=== PATIENT | female | born 1945 | race Caucasian/White ===

== ENCOUNTER → 2017-04-09 | Outpatient (CLI) | payer MEDICARE ==
--- NOTE | 2017-04-09 15:04 | PCVCIMAG ---
EXAM: BILATERAL CAROTID DUPLEX INDICATION: Carotid Occlusive Disease. FINDINGS: Doppler Measurements (centimeters per second): RIGHT: Peak CCA-51, Peak ECA-101, Diastolic ICA-44, Peak ICA-188, ICA/CCA Ratio-3.7. LEFT: Peak CCA-59, Peak ECA-112, Diastolic ICA-16, Peak ICA-72, ICA/CCA Ratio-1.2. RIGHT CAROTID: The carotid bulb has moderate plaque. The proximal internal carotid artery shows 60-70% stenosis. The common carotid artery shows no significant stenosis. The external carotid artery shows no significant stenosis. LEFT CAROTID: The carotid bulb has mild plaque. The proximal internal carotid artery shows <40% stenosis. The common carotid artery shows no significant stenosis. The external carotid artery shows no significant stenosis. Antegrade flow in both vertebral arteries. IMPRESSION: 60-70% stenosis of the right internal carotid artery with moderate plaque. <40% stenosis of the left internal carotid artery with mild plaque. LOC:[place] [id number]
--- NOTE | 2017-04-10 09:58 | PCVCIMAG ---
APPROVED REPORT Study performed: 04/09/2017 14:39:27 EXAM: Comprehensive 2D, Doppler, and color-flow Echocardiogram Patient Location: Echo lab Status: routine BSA: 1.65 HR: 87 bpmBP: 110/64 mmHg Rhythm: NSR Other Information Study Quality: Adequate Risk Factors: Cardiac Risk Factors: HTN Indications #23 Bovine Aortic valve replacement, moderate mitral regurgitation 2D Dimensions LVEF(%): 26.27 (>50%) IVSd: 11.04 (7-11mm)LVOT Diam: 23.19 (18-24mm) LVDd: 39.75 mm PWd: 10.17 (7-11mm)Ascending Ao: 43.53 (22-36mm) LVDs: 34.99 (25-40mm) Left Atrium: 32.38 (27-40mm) Aortic Root: 38.24 mm LV Single Plane 4CH: 59.16 % LV Single Plane 2CH: 53.99 %Bustos's LVEF: 56.58 % Biplane EF: 56.0 % Volumes Left Atrial Volume (Systole) Single Plane 4CH: 54.51 mLSingle Plane 2CH: 70.52 mL LA ESV Index: 39.00 mL/m2 Aortic Valve AoV Peak Faustino.: 1.94 m/s AO Peak Gr.: 15.11 mmHgLVOT Max P.72 mmHg AO Mean Gr.: 7.31 mmHgLVOT Mean P.30 mmHg AO V2 Mean: 1.29 m/sLVOT Max V: 0.82 m/s AO V2 VTI: 32.06 cmLVOT Mean V: 0.53 m/s MARQUIS (VTI): 2.12 [id number] V1 VTI: 16.08 cm MARQUIS Vmax: 1.79 cm2 SV (LVOT): 67.88 mL Mitral Valve MV Peak Gr.: 2.48 mmHg MV Mean Gr.: 1.12 mmHgE/A Ratio: 1.6 MV Decel. Time: 207.83 ms MV E Max Faustino.: 0.68 m/s MV A Faustino.: 0.42 m/s MV Max Faustino.: 0.79 m/s MV Mean Faustino.: 0.50 m/s MV VTI: 192.06 mm MVA VTI: 353.41 mm2 MV PHT: 80.05 ms MVA (PHT): 2.75 cm2 IVRT: 79.58 ms Pulmonary Valve PV Peak Faustino.: 0.93 m/sPV Peak Gr.: 3.45 mmHg Pulmonary Vein P Vein S: 0.27 m/sP Vein A: 0.32 m/s P Vein D: 0.45 m/sP Vein A Dur.: 117.6 msec P Vein S/D Ratio: 0.60 Tricuspid Valve TR Peak Faustino.: 2.18 m/s TR Peak Gr.: 19.02 mmHg Left Ventricle The left ventricle is normal size. There is normal LV segmental wall motion. There is normal left ventricular wall thickness. Left ventricular systolic function is normal. The left ventricular ejection fraction is within the normal range. LVEF is 55%. Grade II - pseudonormal filling dynamics. Right Ventricle The right ventricle is normal size. The right ventricular systolic function is normal. Atria The left atrium size is moderately dilated. The right atrium size is normal. Aortic Valve Normally functioning #23 Bovine aortic valve replacement. The prosthetic aortic valve appears normal. No aortic regurgitation is present. There is no aortic valvular stenosis. Mitral Valve The mitral valve is normal in structure. Moderate eccentric, posterior mitral regurgitation. No evidence of mitral valve stenosis. Tricuspid Valve The tricuspid valve is normal in structure. There is no tricuspid valve regurgitation noted. Pulmonic Valve The pulmonary valve is normal in structure. There is no pulmonic valvular regurgitation. Great Vessels The aortic root is normal in size. IVC is normal in size and collapses with >50% inspiration Pericardium There is no pericardial effusion. <Conclusion> The left ventricle is normal size. LVEF is 55%. Grade II - pseudonormal filling dynamics. The right ventricle is normal size. The left atrium size is moderately dilated. Normally functioning #23 Bovine aortic valve replacement. There is no aortic valvular stenosis. Moderate eccentric, posterior mitral regurgitation. There is no tricuspid valve regurgitation noted. There is no pericardial effusion.
== END | disposition home or self-care (01) ==
LOC: PCVCIMAG 14:11
PROVIDERS: ATTEND Internal Medicine Cardiovascular Disease
DX: I65.23 Occlusion and stenosis of bilateral carotid arteries (principal); I34.0 Nonrheumatic mitral (valve) insufficiency; I25.10 Atherosclerotic heart disease of native coronary artery without angina pectoris; I10 Essential (primary) hypertension; Z95.4 Presence of other heart-valve replacement
CPT/HCPCS: 93306; 93880

== ENCOUNTER → 2017-04-16 | Outpatient (CLI) | payer MEDICARE ==
[~2017-04-16] MED LIST: REGADENOSON 0.4 MG/5 ML DISP.SYRIN. IV ONE
--- NOTE | 2017-04-17 14:03 | PCVCIMAG ---
APPROVED REPORT Exam: Nuclear Stress Test Indication: Abnormal EKG, Atypical Chest pain Patient Location: Out-Patient Stress Nurse: Bita Skinner RN, LAURITA Painter Tech:Suzette Kraftdamon [facility] Ht: 5 ft 2 in Wt: 139 lbs BSA: 1.64 m2 HR: 69 bpm BP: 177/76 mmHg BMI: 25.4 Rhythm: NSR, RBBB Medical History Medical History: Hyperlipidemia, HTN, CVD, AGE Medications: ASA, Atorvastatin, Celebrex, Gabapentin, [place], Prevacid, Losartan, Metoprolol (held 24 hours) Allergies: Ibuprofen, PCN Previous Cardiac Procedures: 2009 AVR Pretest Chest Pain Characteristics: No chest pain Exercise History: Sedentary Physical Disabilities: Legs NM EXAM: Myocardial Perfusion REST/STRESS Imaging Protocol: Rest Tc-99m/Stress Tc-99m 1 day Resting Data Rest SPECT myocardial perfusion imaging was performed in supine position 45 minutes following the intravenous injection of 9.9 mCi of Tc-99m Sestamibi. Time of rest injection: 814 Date: 04/16/2017 Administration Route: IV Administration Site: Right Arm Pharmacologic Stress Pharmacologic stress test was performed by injecting Regadenoson 0.4 mg IV push followed by the intravenous injection of 33.1 mCi of Tc-99m Sestamibi. Time of stress injection: 929 Date: 04/16/2017 Administration Route: IV Administration Site: Right Arm Gated Stress SPECT was performed 45 minutes after stress injection. The images were gated to evaluate regional wall motion and calculate left ventricular ejection fraction. Study Quality Study: Good Study Data Post stress, the left ventricular ejection was 69%.. SSS: 2 SRS: 3 SDS: 1 TID = 1.12. Perfusion No evidence of stress induced ischemia or prior myocardial infarction. Wall Motion Normal left ventricular size and function with no regional wall motion abnormalities. Nuclear Conclusion No evidence of stress induced ischemia or prior myocardial infarction. Normal left ventricular size and function with no regional wall motion abnormalities. Post stress, the left ventricular ejection was 69%.. No change since prior study dated 2015. Interpreted by: Vidal Monique MD Electronically Approved: 04/16/2017 13:25:08 Stress Test Details Stress Test: Pharmacologic stress testing performed using 0.4 mg of regadenoson per 5 mL given IV over 10 seconds. Reason for pharmacologic stress test: physical limitation. HR Resting HR: 69 bpmMax Heart Rate (APMHR): 150 bpm Max HR Achieved: 99 bpmTarget HR (85% APMHR): 127 bpm % of APMHR: 66 Recovery HR: 86 bpm BP Resting BP: 171/76 mmHg Max BP: 162/76 mmHg ECG Resting ECG: Sinus Rhythm, RBBB Stress ECG: Sinus Tachycardia, RBBB Recovery ECG: Sinus Rhythm, RBBB Clinical Reason for Termination: Completed protocol Stress Symptoms: Emesis, Nausea Exercise duration: 0 min 55 sec Exercise capacity: 1.0 METs Symptoms resolved with caffeine. Stress ECG Conclusion ECG: Non-ischemic Clinical: Non-ischemic <Conclusion> ECG: Non-ischemic Clinical: Non-ischemic
== END | disposition home or self-care (01) ==
LOC: PCVCIMAG 07:19
PROVIDERS: ATTEND Internal Medicine Cardiovascular Disease
DX: I45.10 Unspecified right bundle-branch block (principal); I10 Essential (primary) hypertension; K52.9 Noninfective gastroenteritis and colitis, unspecified; E78.5 Hyperlipidemia, unspecified; I25.10 Atherosclerotic heart disease of native coronary artery without angina pectoris; I77.9 Disorder of arteries and arterioles, unspecified; I34.0 Nonrheumatic mitral (valve) insufficiency
CPT/HCPCS: 78452; 93017; A9500; J2785

== ENCOUNTER → 2018-01-27 | Outpatient (CLI) | payer MEDICARE | END | disposition home or self-care (01) | LOC: PCVCIMAG 13:17 | DX: I65.23 Occlusion and stenosis of bilateral carotid arteries (principal); I77.9 Disorder of arteries and arterioles, unspecified; I25.10 Atherosclerotic heart disease of native coronary artery without angina pectoris; E78.00 Pure hypercholesterolemia, unspecified; I10 Essential (primary) hypertension; I42.9 Cardiomyopathy, unspecified; R94.31 Abnormal electrocardiogram [ECG] [EKG]; Z95.2 Presence of prosthetic heart valve; Z87.891 Personal history of nicotine dependence; Z79.82 Long term (current) use of aspirin; Z79.899 Other long term (current) drug therapy; Z88.0 Allergy status to penicillin; Z88.8 Allergy status to other drugs, medicaments and biological substances | CPT/HCPCS: 80061; 93005; 93880; G0463 ==

== ENCOUNTER → 2018-10-21 | Outpatient (CLI) | payer MEDICARE ==
--- NOTE | 2018-10-21 14:35 | PCVCIMAG ---
EXAM: BILATERAL CAROTID DUPLEX INDICATION: Carotid Occlusive Disease. FINDINGS: Doppler Measurements (centimeters per second): RIGHT: Peak CCA-59, Peak ECA-155, Diastolic ICA-17, Peak ICA-157, ICA/CCA Ratio-2.7. LEFT: Peak CCA-73, Peak ECA-95, Diastolic ICA-14, Peak ICA-122, ICA/CCA Ratio-1.7. RIGHT CAROTID: The carotid bulb has moderate plaque. The proximal internal carotid artery shows 60-70% stenosis. The common carotid artery shows no significant stenosis. The external carotid artery shows 50% stenosis. LEFT CAROTID: The carotid bulb has moderate plaque. The proximal internal carotid artery shows 40% stenosis. The common carotid artery shows no significant stenosis. The external carotid artery shows no significant stenosis. Antegrade flow in both vertebral arteries. IMPRESSION: 60-70% stenosis of the right internal carotid artery with moderate plaque. <40% stenosis of the left internal carotid artery with moderate plaque. No change since January 2018 study. LOC:[id number]
--- NOTE | 2018-10-21 16:05 | PCVCIMAG ---
APPROVED REPORT Study performed: 10/21/2018 14:57:11 EXAM: Comprehensive 2D, Doppler, and color-flow Echocardiogram Patient Location: Echo lab Status: routine BSA: 1.54 HR: 64 bpmBP: 140/82 mmHg Rhythm: NSR Other Information Study Quality: Adequate Risk Factors: Cardiac Risk Factors: HTN Indications CAD #23 aortic valve replacement, mitral regurgitation 2D Dimensions IVSd: 10.59 (7-11mm)LVOT Diam: 23.03 (18-24mm) LVDd: 50.46 mm PWd: 9.87 (7-11mm)Ascending Ao: 43.58 (22-36mm) LVDs: 32.26 (25-40mm) Left Atrium: 39.40 (27-40mm) Aortic Root: 41.77 mm LV Single Plane 4CH: 57.96 % LV Single Plane 2CH: 48.80 % Biplane EF: 53.2 % Volumes Left Atrial Volume (Systole) Single Plane 4CH: 77.00 mLSingle Plane 2CH: 80.63 mL LA ESV Index: 51.00 mL/m2 Aortic Valve AoV Peak Faustino.: 2.03 m/s AO Peak Gr.: 16.50 mmHgLVOT Max P.80 mmHg AO Mean Gr.: 7.35 mmHgLVOT Mean P.98 mmHg AO V2 Mean: 1.26 m/sLVOT Max V: 0.97 m/s AO V2 VTI: 42.82 cmLVOT Mean V: 0.66 m/s MARQUIS (VTI): 2.08 [id number] V1 VTI: 21.37 cm MARQUIS Vmax: 2.00 cm2 SV (LVOT): 89.00 mL Mitral Valve E/A Ratio: 2.8 MV Decel. Time: 175.94 ms MV E Max Faustino.: 1.16 m/s MV A Faustino.: 0.42 m/s MV Max Faustino.: 6.57 m/s MV Mean Faustino.: 4.80 m/s IVRT: 65.74 ms Pulmonary Valve PV Peak Faustino.: 0.84 m/sPV Peak Gr.: 2.84 mmHg Pulmonary Vein P Vein S: 0.27 m/sP Vein A: 0.29 m/s P Vein D: 0.63 m/sP Vein A Dur.: 159.2 msec P Vein S/D Ratio: 0.43 Tricuspid Valve TR Peak Faustino.: 2.60 m/s TR Peak Gr.: 27.13 mmHg Left Ventricle The left ventricle is normal size. There is normal LV segmental wall motion. There is normal left ventricular wall thickness. Left ventricular systolic function is normal. The left ventricular ejection fraction is within the normal range. LVEF is 55%. Grade II - pseudonormal filling dynamics. Right Ventricle The right ventricle is normal size. The right ventricular systolic function is normal. Atria Left atrium is moderate-severely dilated. Right atrium is mildly dilated. Aortic Valve Normally functioning #23 aortic valve replacment. No aortic regurgitation is present. There is no evidence of aortic valve stenosis. Calculated aortic valve area is 2 cm2 with maximum pressure gradient of 16 mmHg and mean pressure gradient of 7 mmHg. Mitral Valve The mitral valve is normal in structure. Moderate to severe mitral regurgitation No evidence of mitral valve stenosis. Tricuspid Valve The tricuspid valve is normal in structure. Mild tricuspid regurgitation with PAP of 34 mmHg. Pulmonic Valve The pulmonary valve is normal in structure. There is no pulmonic valvular regurgitation. Great Vessels The aortic root is normal in size. IVC is normal in size and collapses >50% with inspiration. Pericardium There is no pericardial effusion. There is no pleural effusion. <Conclusion> The left ventricle is normal size. LVEF is 55%. Grade II - pseudonormal filling dynamics. The right ventricle is normal size. Left atrium is moderate-severely dilated. Right atrium is mildly dilated. Normally functioning #23 aortic valve replacment. There is no evidence of aortic valve stenosis. Calculated aortic valve area is 2 cm2 with maximum pressure gradient of 16 mmHg and mean pressure gradient of 7 mmHg. Moderate to severe mitral regurgitation Mild tricuspid regurgitation with PAP of 34 mmHg. The aortic root is normal in size. There is no pericardial effusion.
== END | disposition home or self-care (01) ==
LOC: PCVCIMAG 13:10
PROVIDERS: ATTEND Internal Medicine Cardiovascular Disease
DX: I65.23 Occlusion and stenosis of bilateral carotid arteries (principal); I08.1 Rheumatic disorders of both mitral and tricuspid valves; I25.10 Atherosclerotic heart disease of native coronary artery without angina pectoris; I10 Essential (primary) hypertension; E78.00 Pure hypercholesterolemia, unspecified; Z87.891 Personal history of nicotine dependence; Z79.82 Long term (current) use of aspirin
CPT/HCPCS: 36415; 80061; 93005; 93306; 93880; G0463